=== PATIENT | female | born 1970 | race Two or more races ===

== ENCOUNTER 2025-06-02 19:31 | Emergency (ER) | payer MEDICAID, OTHER ==
[~2025-06-02] VITALS: Ht 167.6 cm; Wt 68.0 kg
[~2025-06-02 19:31] MED LIST: GABA-532 PO; TRAM50TA2 PO; VALA10002 PO
[2025-06-02] MEDS ORDERED: diphenhydrAMINE 50 MG/1 ML VIAL ONE (20:00)
[2025-06-02] MEDS ORDERED: METOCLOPRAMIDE HCL 10 MG/2 ML VIAL ONE (20:00)
[2025-06-02] MEDS ORDERED: LORAZEPAM 2 MG/1 ML VIAL ONE (20:01)
[2025-06-02] MEDS: METOCLOPRAMIDE HCL 10 MG/2 ML VIAL IV ONE (20:08)
[2025-06-02] MEDS: diphenhydrAMINE 50 MG/1 ML VIAL IV ONE (20:08)
[2025-06-02] MEDS: LORAZEPAM 2 MG/1 ML VIAL IV ONE (20:08)
[2025-06-02] MEDS: IV NORMAL SALINE 1000 ML BAG IV ONE (20:13)
[2025-06-02 20:14] LABS: PLATELET COUNT (AUTO) 266 K/uL (179-408); RED BLOOD CELL COUNT(AUTO) 4.74 MIL/uL (3.63-4.92); RED CELL DISTRIBUTION WIDTH 13.1 % (12.3-17.7); WHITE BLOOD COUNT (AUTO) 7.6 K/uL (3.8-11.8)
[2025-06-02 20:22] LABS: CREATININE 0.8 mg/dL (0.6-1.3); SODIUM SERUM 143 mmol/L (136-145); UREA NITROGEN, BLOOD 9 mg/dL (7-18)
[2025-06-02 20:28] LABS: ASPARTATE AMINOTRANSFERASE 24 U/L (15-37); TOTAL PROTEIN, SERUM 7.6 g/dL (6.4-8.2)
[2025-06-02 20:32] VITALS: BP 145/85
[2025-06-02] MEDS ORDERED: ONDA-243 PO (21:47)
[2025-06-02] MEDS ORDERED: PROC25SU29 RC (21:47)
[2025-06-02] MEDS ORDERED: DIPH25TA25 PO (21:47)
[2025-06-02 22:27] VITALS: BP 140/80; O2SAT 99
== END 2025-06-02 22:16 | disposition home or self-care (01) ==
LOC: ER 19:43
DX: R11.2 Nausea with vomiting, unspecified (principal); R19.7 Diarrhea, unspecified; R07.9 Chest pain, unspecified; R94.31 Abnormal electrocardiogram [ECG] [EKG]; R06.02 Shortness of breath; Z79.624 Long term (current) use of inhibitors of nucleotide synthesis; Z88.7 Allergy status to serum and vaccine
CPT/HCPCS: 36415; 71045; 84484; 85025; A4606; A4663; J1200; J2060; J2765; J7040